=== PATIENT | female | born 1970 | race Caucasian/White ===

== ENCOUNTER → 2021-04-05 09:50 | Outpatient (BNVA) | payer MEDICARE, MEDICAID, SELFPAY | PROVIDERS: Referring Provider Family Medicine; Visit Provider Physician Assistant | DX: M54.50 Low back pain, unspecified (principal); M51.87 Other intervertebral disc disorders, lumbosacral region | CPT/HCPCS: 72110 ==

== ENCOUNTER → 2021-05-19 08:37 | Outpatient (BNVA) | payer MEDICARE, MEDICAID, SELFPAY | PROVIDERS: Visit Provider Physician Assistant | DX: M46.46 Discitis, unspecified, lumbar region (principal); M43.17 Spondylolisthesis, lumbosacral region | CPT/HCPCS: 72100 ==

== ENCOUNTER 2021-06-20 10:46 | Outpatient (CLI) | payer MEDICARE, MEDICAID, SELFPAY ==
--- NOTE | 2021-06-20 11:00 | MR_ITS ---
WS: [id number] MRI LUMBAR SPINE WITH CONTRAST TECHNIQUE: Sagittal T1, T2 and STIR imaging. Axial T1 and T2 imaging. Post gadolinium imaging was obt ained. CLINICAL INFORMATION: M43.17 - Spondylolisthesis, lumbosacral region COMPARISON: MRI March 11, 2021 FINDINGS: Again seen are changes of discitis at L5-S1 similar to the prior examination March 11, 2021. The p reviously described intradiscal abscess has decreased in size compared to previous. Increased erosive changes involving the inferior endplate L5 with progressed involvement of the S1 vertebral body toda y compatible with osteomyelitis. Diffuse enhancement involving the S1 vertebral body extending to the S1-S2 disc space and into the S2 vertebral body. This is new from previous. Previously described jyoti tral epidural abscess appears improved with diffuse residual epidural thickening and enhancement. Inc reased presacral soft tissue edema extending off the [id number] with paravertebral enhancement. Sa cral edema and enhancement extends into the LEFT sacral ala suspicious for osteomyelitis in this area . Bilateral renal cysts. Mild central canal stenosis C5-C6 and C6-C7 seen on the nuclear medicine technician imaging. L1-L2: Normal. L2-L3: Mild annular bulging with slight effacement of ventral thecal sac. Mild facet arthropathy. Spi nal canal and foramen are patent. L3-L4: No significant disc bulging. Mild facet arthropathy. Spinal canal and foramen are patent. L4-L5: Mild disc bulging with slight effacement of ventral thecal sac. Mild facet arthropathy. Spinal canal and foramen are patent. L5-S1: Chronic spondylolysis at this level with grade 1-2 anterolisthesis. Improved intradiscal absce ss at this level with progressed sacral edema and enhancement at S1 extending into the S2 vertebral b prema and LEFT sacral ala. Persistent erosive changes of the inferior endplate L5. Epidural abscess brittany ears improved with persistent circumferential epidural enhancement. Mild narrowing of the thecal sac distally. No high-grade central canal stenosis. Normal psoas bilaterally MR/MR lumbar spine wo/w con [id number] IMPRESSION: 1. Again seen are changes of discitis/osteomyelitis involving the L5-S1 disc s pace. 2. Improved intradiscal abscess L5-S1 with persistent phlegmon in the disc spa ce. Ventral epidural abscess has improved with persistent epidural enhancement. Mild narrowing of the thecal sac distally. 3. Edema and enhancement suspicious for osteomyelitis involving the S1 vertebr al body has progressed. This extends into the S2 vertebral body eccentric to th e LEFT and into the LEFT sacral ala new from previous. Diffuse yuliya-sacral sanjay a. 4. Persistent erosive changes of the L5 inferior endplate and progressed erosi ve changes involving the S1 superior endplate. 5. No other significant changes compared to previous.
== END 2021-06-20 10:47 | disposition home or self-care (01) ==
LOC: RAD 10:47
PROVIDERS: Visit Provider Physician Assistant
DX: M43.17 Spondylolisthesis, lumbosacral region (principal); M46.27 Osteomyelitis of vertebra, lumbosacral region; R60.0 Localized edema
CPT/HCPCS: 72158

== ENCOUNTER 2021-08-03 11:23 | Inpatient (IN) | payer MEDICARE, MEDICAID, SELFPAY ==
[2021-07-29 10:24] VITALS: BMI 29.8
[2021-07-29 10:59] LABS: Basophils % 0.3 %; Eosinophils # 0.2 10^3/uL (0.0-0.8); Eosinophils % 2.3 %; Hematocrit 36.9 % (37.0-47.0); Hemoglobin 11.7 g/dL (11.5-15.3); Lymphocytes # 1.6 10^3/uL (0.8-4.8); Lymphocytes % 18.5 %; Mean Corpuscular HGB Conc 31.7 g/dL (30.0-36.0); Mean Corpuscular Hemoglobin 28.2 pg (28.0-34.0); Mean Corpuscular Volume 88.9 fl (81-99); Mean Platelet Volume 12.6 fL (7.4-10.4); Monocytes # 0.9 10^3/uL (0.2-0.9); Monocytes % 9.9 %; Neutrophils # 6.03 10^3/uL (1.8-7.7); Nucleated Red Blood Cells % 0 %; Platelet Count 150 10^3/cmm (130-400); Red Blood Count 4.15 10^6/uL (4.1-5.3); Red Cell Distribution Width 17.7 % (12.1-15.1); White Blood Count 8.9 10^3/uL (4.0-10.0)
[2021-07-29 11:13] LABS: Anion Gap 21.1 (5-19); Blood Urea Nitrogen 15 mg/dL (6-20); Calcium 9.2 mg/dL (8.5-10.5); Carbon Dioxide 19 mmol/L (22-29); Chloride 100 mmol/L (98-107); Glomerular Filtration Rate 75.6 mL/min (90-130); Glucose 128 mg/dL (65-115); Osmolality Calculated 284 mOsm/kg (285-295); Potassium 4.1 mmol/L (3.5-5.1); Sodium 136 mmol/L (136-145)
--- NOTE | 2021-07-29 12:42 | ANES.PREANE2 ---
Pre-Anesthetic Assessment Height/Weight: Height 1.68 m Weight 83.915 kg Preop Diagnosis: lumbosacral radculopathy Operation Date: 08/03/21 07:00 Proposed Procedures p L3-Pelvis fusion [id number]/M43.16/m51.36(Not Applicable) - Parmjit Muñoz, DO Familial anesthetic complications: none Was Beta Michi taken within 24 hours: N/A Was Clonidine taken within 24 hours: N/A Social No alcohol and No tobacco Exam alert, oriented x 3, clear to auscultation bilaterally and regular rate & rhythm Airway Submandibular: within normal limits Cervical ROM: within normal limits Mallampati: Class I Dentition: false History/ROS No significant complaints Pulmonary None reported CV/HEM Hypertension METS < 4 due to pain None reported Hepatic None reported GI None reported Metabolic Diabetes Mellitus [facility] [place] None reported Neuropsych Neuropathy Anesthetic Plan ASA status: 2 Anesthesia: Anesthesia Evaluation and General Other: We discussed risk and benefits of general anesthesia including PONV, sore throat (sometimes severe), corneal abrasion, positioning and peripheral nerve injuries, life threatening allergic reaction, post operative ICU admission requiring prolonged intubation, stroke, heart attack, , post op blindness, and rare incidences of recall. Patient consents to proceed with general anesthesia. Risk of > 500 ml blood loss (7ml/kg in children): No Medications/Allergies Home Medications Medication Instructions Recorded Confirmed Last Taken Type duloxetine 30 mg capsule,delayed 30 mg PO DAILY 04/05/21 07/29/21 Unknown History release lovastatin 20 mg tablet 20 mg PO DAILY 04/05/21 07/29/21 Unknown History metformin 500 mg tablet 500 mg PO BID 04/05/21 07/29/21 Unknown History hydrochlorothiazide 25 mg tablet 25 mg PO DAILY 07/29/21 07/29/21 Unknown History hydrocodone 5 mg-acetaminophen 325 1 tab PO PRN PRN 07/29/21 07/29/21 Unknown History mg tablet losartan 50 mg tablet 50 mg PO DAILY 07/29/21 07/29/21 Unknown History Allergies Allergy/AdvReac Type Severity Reaction Status Date / Time azithromycin Allergy ADR-Itching Verified 07/29/21 10:20 naproxen [From EC-Naproxen] Allergy ADR-Abdominal Verified 07/29/21 10:20 Pain PFSH Anesthesia Social History Smoking and tobacco status: former smoker Data Anesthesia : 07/29/21 10:35 07/29/21 10:35 Short CBC 07/29/21 Range/Units 10:35 WBC 8.9 (4.0-10.0) 10^3/uL Hgb 11.7 (11.5-15.3) g/dL Hct 36.9 L (37.0-47.0) % MCV 88.9 (81-99) fl Plt Count 150 (130-400) 10^3/cmm Neut % (Auto) 68.0 % Neut # (Auto) 6.03 (1.8-7.7) 10^3/uL BMP 07/29/21 10:35 Sodium 136 Potassium 4.1 Chloride 100 Carbon Dioxide 19 L BUN 15 Creatinine 0.8 Glucose 128 H Calcium 9.2 Cardiac Studies: No Data to Display
[2021-08-03] VITALS (26 sets, daily range): BP systolic 108–143; BP diastolic 73–110; PULSE 72–102; RESP 16–20; TEMP 36.1–36.7; O2SAT 87–100; BMI 30.2
--- NOTE | 2021-08-03 | SCC_ITS ---
Procedure done: 1. L3- Pelvis posterior spine fusion 2. L3 to S1 instrumentation 3. Lumbopelvic instrumentation 4. Laminectomy with partial facetectomy L5/S1 5. Laminectomy with partial facetectomy L4/5 6. Debridement of L5/S1 disk space with cultures taken 7. Use of computer navigation/ stereotactic for the spine 8. use of allograft 15 seconds of fluoroscopic guidance, for a cumulative dose of 47.0 mGy, was provided to Dr. Muñoz by the radiology department. C-arm images of the lumbar spine were saved for the patient's permanent record. [facility]
--- NOTE | 2021-08-03 | XR_ITS ---
WS: [id number] Lumbar spine, C-arm fluoroscopy, 08/03/2021 Clinical Data: PLIF l4- pelvis Comparison: None. Findings: Dr. Muñoz performed a posterior lumbar fusion. XR/XR lumbar spine 1V [id number] Impression: Posterior lumbar fusion.
[2021-08-03 06:36] LABS: Glucose Point of Care 150 mg/dL (70-110)
[2021-08-03] MEDS: sodium chloride 0.9% 1,000 ML 30 ML IV (06:38)
--- NOTE | 2021-08-03 06:41 | P.ANESUD_ITS ---
Pre-Anesthetic Update Pre-Anesthetic Assessment: Date of Surgery/Procedure: 08/03/21 Preop Dina gnosis: Right Distal Radius Fracture Proposed Procedure: Operation Date: 08/03/21 07:00 Proposed Procedures p L3-Pelvis fusion [id number]/M43.16/m51.36(Not Applicable) - Parmjit Muñoz, DO Any changes to Pre-Anesthetic Assessment?: No Last Intake: Intake Last Liquid Date 08/02/21 Last Liquid Time 20:00 Last Solid Date 08/02/21 Last Solid Time 18:00 Vitals: Temperature 97.0 F L 08/03/21 06:13 Temperature Source Temporal Artery S can 08/03/21 06:13 Pulse Rate 102 H 08/03/21 06:13 Respiratory Rate 18 08/03/21 06:13 Blood Pressure 143/110 08/03/21 06:13 Blood Pressure Anushka n 121 08/03/21 06:13 Pulse Oximetry 98 08/03/21 06:13 Oxygen Delivery Me thod 08/03/21 06:16 Exam: Pre-Anes Outpt Exam: alert, oriented x 3, clear to auscultation bilaterally and regular rate & rhythm Cardiac Studies: No Data to Display
[2021-08-03 07:31] LABS: C Reactive Protein 50.6 mg/L (0.0-4.9)
[2021-08-03 07:32] LABS: Erythrocyte Sedimentation Rate 70 mm/hr (0-15)
[2021-08-03] MEDS: vancomycin 1,000 MG SDV 1000 MG XX (07:46)
[2021-08-03] MEDS: heparin, porcine 1,000 unit/mL INJ 10 mL 10000 UNIT IRRIGATION (07:47)
--- NOTE | 2021-08-03 10:09 | PM.OP ---
Operative Report Date of procedure: August 03, 2021 Pre-op diagnosis: Preop Diagnosis L5/S1 Discitis Post-op diagnosis: same Procedure done: 1. L3- Pelvis posterior spine fusion 2. L3 to S1 instrumentation 3. Lumbopelvic instrumentation 4. Laminectomy with partial facetectomy L5/S1 5. Laminectomy with partial facetectomy L4/5 6. Debridement of L5/S1 disk space with cultures taken 7. Use of computer navigation/ stereotactic for the spine 8. use of allograft Pathology: other (cultures sent of epidural space and disk space; aeobic and anaerobic cultures sent of disk space) Surgeon: Parmjit Muñoz Senior Vice President: George Olivarez Senior Vice President: The instructor adjunct surgical technician, George Olivarez, PAC was needed for his expertise under the microscope. He was important and necessary throughout the procedure to complete in a safe and timely manner. He assisted with patient positioning prepping and draping tissue retraction suctioning of the operative field protection of the dural sac and tissue closure Estimated blood loss (mL): 300 Procedure: 1. L3- Pelvis posterior spine fusion 2. L3 to S1 instrumentation 3. Lumbopelvic instrumentation 4. Laminectomy with partial facetectomy L5/S1 5. Laminectomy with partial facetectomy L4/5 6. Debridement of L5/S1 disk space with cultures taken 7. Use of computer navigation/ stereotactic for the spine 8. Bone marrow aspirate from Right iliac crest 9. use of allograft Patient is brought to the operative suite after undergoing anesthesia was placed in the prone position all areas impingement were well-padded. Patient was then prepped and draped in normal sterile fashion. Subperiosteal dissection was made down to the L3-L4 and L5 transverse processes. This was done from midline from the spinous process out to the transverse processes. This was continued down into the sacral ala bilaterally. Once exposure was complete attention was then brought to getting the bone marrow aspirate. Bone marrow aspirate was taken from the right iliac crest. This was done using the Rashmi cell bone marrow aspiration kit. The sharp was inserted into the right iliac crest followed by the blunt aspirates were done in order to this ensure that the needle was inside of the bone. The aspiration then began and in 1 mm increments bone marrow aspirate was taken in order to facilitate the most amount of stem cells. This stem cells were then mixed with the OsteoMed bone graft. Next attention was brought to placing the fiducials for the computer navigation. 2 pins were placed into the right iliac crest. These pins were then removed at the end of the case. The fiducial was then attached to these 2 pins and then the C-arm was brought in and spun around the patient. Information from the C-arm was then loaded into the computer and this was used for the computer navigation for placing the pedicle screws. Next attention was brought to placing the pedicle screws. This was done using the computer navigated gearshift. Attention was brought to the S1 pedicle on the left. The gearshift was inserted in the prone position. Measured pedicle feeler was then inserted and then the computer navigated screw was inserted using computer navigation. This process was repeated at S1 on the contralateral side. Then at L5 bilaterally, and L4 bilaterally, and L3 bilaterally. Patient was brought to placing the bilateral iliac screws. This was done using the gearshift probe as well these are sacral ala iliac technique was used. These were eight 5 x 70 mm screws. Once the screws were placed on the inner tables of the iliac crests through the sacrum C-arm was then brought in to ensure that all the screws were in the proper position. Attention was brought to the laminectomy of L5 along with partial facetectomies of L5-S1. This was done using high-speed bur Kerrison rongeurs and curettes. The ligamentum flavum was scarred down to the dura was peeled off using a curette and [place]. The drill was used to thin the bone and then the Kerrison was used to take the bone off the dura along with the ligament. All this was taken for cultures. This was done bilaterally. And then once the disc was identified small hole was made in the disc and cultures were taken of the disc as well aerobic and anaerobic cultures. Both tissue and cultures were taken. And the disc base was debrided with a curette. Next attention was brought to the L4 lamina this was taken down as well along with the medial and lateral aspect of the facet joints. Again using the Kerrison rongeurs to drill and curettes. The L5 nerves were traced around the L5 pedicles the S1 nerves were traced around the S1 pedicles bilaterally to ensure that the nerves are completely decompressed. Wounds were then irrigated. Next attention was brought to decorticating the transverse processes of L3-L4-L5 and the sacral ala bilaterally. The ostial amp bone graft was then packed into the lateral gutters. A deep drain was placed vancomycin powder was placed in the wound was closed in a layered fashion using 0 Vicryl 2-0 Vicryl and Monocryl suture. Sterile dressings were applied and patient was transferred to the PACU in stable condition.
[2021-08-03] MEDS: fentaNYL 50 mcg/mL INJ 2mL IVP ×2 (10:46→11:18)
--- NOTE | 2021-08-03 11:02 | SUR.PHASEI ---
1022 Bilat SCDs on pump and working
[2021-08-03] MEDS: lactated ringers 1,000 ML 90 ML IV (13:16)
[2021-08-03] MEDS: ketorolac 30 mg/mL INJ IVP ×2 (13:16→20:14)
--- NOTE | 2021-08-03 13:40 | ANE.PACU2 ---
Inpatient post-anesthesia follow up: Airway intact: Yes Vital signs: Temperature 97.2 F Pulse Rate 78 Respiratory Rate 18 Blood Pressure 138/87 Pulse Oximetry 97 Oxygen Delivery Me thod Nasal Cannula Oxygen Flow Rate 1 Fraction of Inspir ed Oxygen Hydration adequate: Yes Nausea and vomiting: No Pain level: 3 Mental status: Baseline
[2021-08-03] MEDS: docusate sodium 100 mg Capsule PO (17:49)
[2021-08-03] MEDS: metformin 500 mg Tablet PO (17:49)
--- NOTE | 2021-08-03 20:23 | PC.NURSE ---
Patient resting in bed in darkened room. Patient reports pain 9/10, patient given Toradol for pain will reassess.
[2021-08-03] MEDS: HYDROcodone-acetaminophen 5-325 mg Tablet PO (21:35)
[2021-08-04] VITALS (7 sets, daily range): BP systolic 121–144; BP diastolic 63–91; PULSE 83–94; RESP 16–18; TEMP 36.5–36.8; O2SAT 94–100
[2021-08-04] MEDS: lactated ringers 1,000 ML 90 ML IV (03:48)
[2021-08-04] MEDS: enoxaparin 40 mg/0.4 mL Syringe SUBCUT (05:18)
[2021-08-04 05:52] LABS: Glucose Point of Care 133 mg/dL (70-110)
--- NOTE | 2021-08-04 07:52 | PM.PN ---
Subjective Subjective: POD 1 Patient resting comfortably. Reports improvement of her back and leg pain. Denies any chest pains, shortness of breath, headaches. Vitals/I&O/Wt Last Vital Signs Temp 97.9 F 08/04/21 07:46 Pulse 93 08/04/21 07:46 Resp 16 08/04/21 07:46 BP 144/63 08/04/21 07:46 Pulse Ox 100 08/04/21 07:46 08/03/21 08/04/21 08/04/21 22:59 06:59 14:59 Intake Total 1380 / 1730 1420 / 3150 Output Total 300 / 750 300 / 1050 Balance 1080 / 980 1120 / 2100 Weight last 48 hrs Weight 191 lb 8 oz Weight 187 lb 9.6 oz Physical Exam Narrative: Patient presents alert and oriented x3 with a good general appearance normal mood and affect. Normal coordination normal stability. Mild tenderness around the incisional site with the incision appear to be clean and dry. No signs of erythema or drainage. No signs of infection. Patient denies any fevers or chills. 5/5 motor strength both lower extremities with negative straight leg raise bilaterally. Calves are supple no medial thigh tenderness. Pulses are 2+ at the dorsalis pedis and posterior tibial region. Good capillary refill throughout normal sensation light touch both lower extremities. Hemovac drain with 50 mL of output. CRP before the procedure was 50.6 with a sed rate of 70 based on her discitis history use this as a baseline. Urinary Catheter Management: Calzaad: Cath Placed During This Visit: yes, but has since been removed by the nurse Reason for Continuing Indwelling Catheter: Decision to DC Catheter Urinary Catheter Date of Insertion: 08/03/21 Urinary Catheter Time of Insertion: 07:15 Date Urinary Catheter Removed: 08/04/21 Time Urinary Catheter Discontinued: 06:37 Data : 07/29/21 10:35 07/29/21 10:35 Micro: Microbiology 08/03/21 09:00 Gram Stain - Final Back 08/03/21 09:00 Gram Stain - Final Back 08/03/21 09:00 Gram Stain - Final Back A&P Assessment and plan (1) Status post lumbar spinal fusion: Physical therapy to evaluate and mobilize. Discussed at length with the patient given her discitis history certainly want a watch her very closely. Encourage her to continue walking program. We will discontinue the Hemovac drain and Calzada catheter. Will discharge home later today see her back in 1 week's time for wound check and she will call if anything changes. Status: Acute Attestations Medical Necessity Statement*: Home later today Coding Level of Care Code Acute Inpatient Care Manager Rn for Deandre Fwkevin Diagnoses Status post lumbar spinal fusion Z98.1
[2021-08-04] MEDS: losartan 50 mg Tablet PO (08:30)
[2021-08-04] MEDS: HYDROcodone-acetaminophen 5-325 mg Tablet PO ×2 (08:31→12:36)
[2021-08-04] MEDS: metformin 500 mg Tablet PO (08:33)
[2021-08-04] MEDS: atorvastatin 40 mg Tablet 20 MG PO (08:35)
[2021-08-04] MEDS: duloxetine 30 mg Capsule PO (08:35)
[2021-08-04] MEDS: hydroCHLOROthiazide 25 mg Tablet PO (08:35)
[2021-08-04] MEDS: docusate sodium 100 mg Capsule PO (08:35)
--- NOTE | 2021-08-04 10:30 | PC.CHAP ---
Pastoral Care Encounter/Spiritual Assessment Type of Contact [] Declined process safety management engineer visit [] Patient/Family/Request visit [] Outpatient visit [] Follow-up visit [] Physician referral [] Code/Alert [x] Routine visit [] Staff referral [] Actively dying [] Patient sleeping [] Family support [] [] Out of room [] Palliative care [] [x] Receiving care in room [] Pre-surgical visit [] Trauma [] Long length of stay [] ICU visit [] Other: Relational/Emotional Strength [x] Patient feels connected with others/family/visitors/staff [] Distress [] Loneliness/isolation [] Abandonment Spirituality of Patient [x] Person of [place] [] Attends Hinduism of their [place] [x] Believes in Prayer [] Reads Bible or Baptist materials [] There are Spiritual issues to be addressed [employer] Interventions [x] Prayer [x] Active listening [x] Non-anxious presence [x] Spiritual/emotional support [] Crisis/trauma care [x] Spiritual counseling [] Bereavement support [] Provided bereavement packet [] Provided Bible/devotional materials [] Provided toy/stuffed animal, coloring book to patient or family member [] Provided Communion [] Anointing/[place] [] Salvation [x] Completed spiritual assessment [] Other: Impact on Illness or Injury [] Angry [] Fearful [x] Anxious [] Often cries [] Exhaustion [] Unable to work [] Unable to attend jew [] Unable to walk/stand [] Unable to read [] Unable to drive [] Unable to eat/drink [] Unable to sleep [] Unable to be with family [] Patient intubated [] Other: Summary had back surgeryin some pain, recovery good has a good attitude + 2 and daugter going home soon Time spent with patient 10 mins
[2021-08-04 11:20] LABS: Glucose Point of Care 218 mg/dL (70-110)
--- NOTE | 2021-08-05 12:25 | PM.DCS ---
Discharge Providers Date of Admission: 08/03/21 11:23 Date of Discharge: August 04, 2021 Attending Provider at Admission: Parmjit Muñoz DO Attending Provider at Discharge: Parmjit Muñoz DO Primary Care Provider: Vlad Kirk Diagnoses at Discharge Discharge Diagnosis (1) Status post lumbar spinal fusion: Status: Acute Hospital Course Hospital Course uneventful Physical Exam Urinary Catheter Management: Calzada: Cath Placed During This Visit: yes, but has since been removed by the nurse Reason for Continuing Indwelling Catheter: Decision to DC Catheter Urinary Catheter Date of Insertion: 08/03/21 Urinary Catheter Time of Insertion: 07:15 Date Urinary Catheter Removed: 08/04/21 Time Urinary Catheter Discontinued: 06:37 Discharge Data Studies Completed and Pending Completed Studies During Hospitalization Category Date Time Status XR lumbar spine 1V [id number] Routine Exams 08/03/21 Completed Pending at discharge Category Date Time Status Anaerobic Culture Routine Lab 08/03/21 09:00 Results Tissue Culture and Gram Stain Routine Lab 08/03/21 09:00 Results Tissue Culture and Gram Stain Routine Lab 08/03/21 09:00 Results Tissue Culture and Gram Stain Routine Lab 08/03/21 09:00 Results Radiology Impressions Lumbar Spine X-Ray 08/03/21 00:00 Impression: Posterior lumbar fusion. Laboratory Results WBC 8.9 10^3/uL (4.0-10.0) 07/29/21 10:35 RBC 4.15 10^6/uL (4.1-5.3) 07/29/21 10:35 Hgb 11.7 g/dL (11.5-15.3) 07/29/21 10:35 Hct 36.9 % (37.0-47.0) L 07/29/21 10:35 MCV 88.9 fl (81-99) 07/29/21 10:35 MCH 28.2 pg (28.0-34.0) 07/29/21 10:35 MCHC 31.7 g/dL (30.0-36.0) 07/29/21 10:35 RDW 17.7 % (12.1-15.1) H 07/29/21 10:35 Plt Count 150 10^3/cmm (130-400) 07/29/21 10:35 MPV 12.6 fL (7.4-10.4) H 07/29/21 10:35 Neut % (Auto) 68.0 % 07/29/21 10:35 Lymph % (Auto) 18.5 % 07/29/21 10:35 Yancey % (Auto) 9.9 % 07/29/21 10:35 Eos % (Auto) 2.3 % 07/29/21 10:35 Baso % (Auto) 0.3 % 07/29/21 10:35 Neut # (Auto) 6.03 10^3/uL (1.8-7.7) 07/29/21 10:35 Lymph # (Auto) 1.6 10^3/uL (0.8-4.8) 07/29/21 10:35 Yancey # (Auto) 0.9 10^3/uL (0.2-0.9) 07/29/21 10:35 Eos # (Auto) 0.2 10^3/uL (0.0-0.8) 07/29/21 10:35 Baso # (Auto) 0.0 10^3/uL (0.0-0.1) 07/29/21 10:35 Nucleated RBC % (auto) 0 % 07/29/21 10:35 Nucleated RBCs # 0.0 /100WBC 07/29/21 10:35 ESR 70 mm/hr (0-15) H 08/03/21 06:34 Sodium 136 mmol/L (136-145) 07/29/21 10:35 Potassium 4.1 mmol/L (3.5-5.1) 07/29/21 10:35 Chloride 100 mmol/L (98-107) 07/29/21 10:35 Carbon Dioxide 19 mmol/L (22-29) L 07/29/21 10:35 Anion Gap 21.1 (5-19) H 07/29/21 10:35 BUN 15 mg/dL (6-20) 07/29/21 10:35 Creatinine 0.8 mg/dL (0.5-0.9) 07/29/21 10:35 GFR Calculation 75.6 mL/min (90-130) L 07/29/21 10:35 Glucose 128 mg/dL (65-115) H 07/29/21 10:35 POC Glucose 218 mg/dL (70-110) H 08/04/21 11:07 Calculated Osmolality 284 mOsm/kg (285-295) L 07/29/21 10:35 Calcium 9.2 mg/dL (8.5-10.5) 07/29/21 10:35 C-Reactive Protein 50.6 mg/L (0.0-4.9) H 08/03/21 06:34 Vitals Last Vital Signs Temp 97.7 F 08/04/21 11:47 Pulse 91 08/04/21 11:47 Resp 18 08/04/21 11:47 BP 121/75 08/04/21 11:47 Pulse Ox 94 08/04/21 11:08 Discharge Plan Discharge Patient Disposition: Home Condition: Stable Prescriptions: New hydrocodone-acetaminophen 5-325 mg tablet 1 - 2 tab PO Q4H Qty: 40 0RF cephalexin 500 mg capsule 500 mg PO QID 10 Days Qty: 40 0RF Continued duloxetine 30 mg capsule,delayed release(DR/EC) 30 mg PO DAILY 0RF lovastatin 20 mg tablet 20 mg PO DAILY 0RF metformin 500 mg tablet 500 mg PO BID 0RF (DME) Bone Growth Stimulator E0748 See Rx Instructions .Route .MEDSUPPLY Qty: 1 0RF Rx Instructions: As directed losartan 50 mg tablet 50 mg PO DAILY 0RF hydrocodone-acetaminophen 5-325 mg tablet 1 tab PO PRN PRN (Reason: Pain) 0RF hydrochlorothiazide 25 mg tablet 25 mg PO DAILY 0RF Discharge Orders: Discharge Order (Routine); Ordered 08/04/21 Ordered By: George Olivarez Referrals: Parmjit Muñoz DO [Physician] - 08/11/21 1:00 pm Discharge Diet: Advance as tolerated Discharge Activity: Increase activity as tolerated Patient Instructions: Cephalexin (By mouth), Hydrocodone/Acetaminophen (By mouth), Lumbar Spinal Fusion (GEN), Opioid Safety Activity Restrictions/Additional Instructions: Thank you for choosing [facility] for your care! The following is a list of instructions, from your provider, to follow upon your discharge to ensure you have the optimal recovery from your recent injury or surgery. Follow-up care is a griffith part of your treatment and safety. Be sure to make and go to all appointments and call your doctor if you are having problems. If you do not already have a follow-up appointment made, call Dr. Muñoz's] office in the next 1-3 days to make follow up appointment for 1 week at [phone]. It is also a good idea to know your test results and keep a list of the medicines you take. Medications will be prescribed for you at your provider's discretion. These medications are to be used as instructed; if they are taken more often that prescribed they will not be refilled early and in most cases will not be refilled at all. > When a refill is needed, you should contact amarilis velez 2-3 business days before your prescription runs out. Medications will NOT be refilled by television parts tester providers after hours! > Many pain medications contain Tylenol (Acetaminophen). Do not consume more than 4,000 mg of Tylenol per day in total with any combination of medications. > Pain medications can cause constipation. Please use an over the counter stool softener as directed, while taking pain medications. Consult your local pharmacist with questions or recommendations on stool softeners. If constipation persists, contact our office or your primary care provider. > While under our care, you are not to receive pain medications or other controlled substances from any other provider unless our office is notified and approves. Any attempts to do so will result in refusal to prescribe any further pain medications and possible dismissal from our practice. ? Walking is essential for the healing process after surgery. We would like you to slowly advance your walking. This should be done on relatively flat clear ground (inside or out) or can be done on a treadmill. Remember this goal does not have to happen all at once, slowly increase your distance and duration. This can be broken into more more than one walk per day as tolerated. Patients who walk as directed after surgery rarely require Physical Therapy. In the unlikely event this issue arises your provider will direct hospital staff to make the appropriate arrangements. ? No lifting over 5 pounds {a gallon of milk) or bending/twisting until further notice. Each of these activities places an unnecessary amount of stress onto the body and can impede the delicate healing process. > Instead of bending at the waist, keep your back straight and bend at the knees. > Instead of twisting your torso, keep your back straight and turn your entire body with your feet. ? You may sleep in any position which makes you comfortable. Many patients find comfort sleeping in a reclining chair. It is not abnormal to have difficulty sleeping for the first several weeks following your surgery. We recommend trying Benadry! or Tylenol PM as directed to help with your sleeping difficulties. Both medications are over the counter and available without prescription. ? NO SMOKING!!! Smoking dramatically increases the probability of developing postoperative wound infections. ? Common complaints after lumbar and/or thoracic spine surgery include, but are not limited to: numbness and/or tingling in the legs, pain around the incision and surrounding tissues, muscle spasms, or stiffness of the middle to low back. Contact our office if these symptoms persist or if an acute change occurs. ? No driving for the first 3-5days, and not while taking narcotics until seen at your follow-up appointment and cleared. There are no restrictions for riding on short trips, however if you take a longer trip, arrangements should be made to make regular stops to get out of the vehicle and stretch . ? Swelling is an unfortunate event that will take place with any surgery and is the primary source of your postoperative discomfort. While walking and regular approved activities helps control inflammation, there are additional steps you can take to minimize swelling. > Place ice over the surgical site and surrounding tissue for twenty minutes, followed by applying a low/medium heat (heating pad) for an additional twenty minutes every 1-2 hours as needed for painrelief. > You may use of over the counter anti-inflammatory medications (Ibuprofen, Motrin, Aleve, Advil, etc) as directed on the package label. These types of medicines will significantly reduce the amount of discomfort you experience after surgery from swelling. It should be noted that if you have and allergy to any of these medications, or a history of ulcers or kidney disease you should consult you primary care provider prior to starting these medications. Discharge Attestations Time Spent in Discharge Care*: less than 30 min Quality Metrics Clinical Quality Measures [ No reported AMI, CVA or VTE this stay] Coding Level of Care Code Acute Chg FW DC note Diagnoses Status post lumbar spinal fusion Z98.1
--- NOTE | 2021-08-05 12:26 | P.HP_ITS ---
Providers/Chief Complaint Admitting Physician: Parmjit Muñoz DO Primary Care Provider: Vlad Kirk History of Present Illness Luh Mcneal is a 50 year old female back pain as well as her MRI results. Patient states her pain is a 10/10 today in clinic.? She continues to ambulate with a walker.? She is accompanied by family member today.? She denies any new injuries other than continued back pain she reports some improvement of her leg numbness.? She still reports weakness in both lower extremities.? She denies any fever chills.? She is wanting to discuss the MRI scan as well as surgical options. Review of Systems General: Reports: 10 or more systems reviewed and unremarkable except in HPI and below Const: Denies: fever(s), chills or fatigue Eyes: Denies: change in vision Card: Denies: chest pain or dyspnea on exertion Resp: Denies: dyspnea, productive cough or wheezing GI: Denies: abdominal pain, nausea or vomiting Musc: Reports: back pain, extremity pain and limited range of motion; Denies: neck pain, extremity swelling, joint pain or joint swelling Neuro: Reports: numbness in extremities; Denies: headache(s) or difficulty walking Medications/Allergies Home Medications Medication Instructions Recorded Confirmed Last Taken Type duloxetine 30 mg capsule,delayed 30 mg PO DAILY 04/05/21 08/03/21 08/02/21 History release lovastatin 20 mg tablet 20 mg PO DAILY 04/05/21 08/03/21 08/03/21 History metformin 500 mg tablet 500 mg PO BID 04/05/21 08/03/21 08/02/21 History hydrochlorothiazide 25 mg tablet 25 mg PO DAILY 07/29/21 08/03/21 08/02/21 History hydrocodone 5 mg-acetaminophen 325 1 tab PO PRN PRN 07/29/21 08/03/21 07/27/21 History mg tablet losartan 50 mg tablet 50 mg PO DAILY 07/29/21 08/03/21 08/02/21 History Bone Growth Stimulator E0748 #1 ea 08/01/21 Unknown Rx cephalexin 500 mg capsule 500 mg PO QID 10 Days #40 cap 08/04/21 Unknown Rx hydrocodone 5 mg-acetaminophen 325 1 - 2 tab PO Q4H #40 tab 08/04/21 Unknown Rx mg tablet Allergies Allergy/AdvReac Type Severity Reaction Status Date / Time azithromycin Allergy ADR-Itching Verified 08/03/21 06:11 naproxen [From EC-Naproxen] Allergy ADR-Abdominal Verified 08/03/21 06:11 Pain PFSH Acute PFSH: Social History Smoking and tobacco status: former smoker Vitals/I&O/Wt Last Vital Signs Temp 97.7 F 08/04/21 11:47 Pulse 91 08/04/21 11:47 Resp 18 08/04/21 11:47 BP 121/75 08/04/21 11:47 Pulse Ox 94 08/04/21 11:08 Weight last 48 hrs Weight 191 lb 8 oz Weight 187 lb 9.6 oz Physical Exam Narrative: ONSTITUTIONAL: The patient is a normal appearing [] in no apparent distress. GENERAL: Patient in no acute distress. CARDIAC: Regular rate and rhythm. CHEST: Normal inspiratory effort, normal respiratory rate. ABDOMEN: Soft and nontender. SKIN: Clear, warm and intact. NEURO?PSYCH: The patient is alert and oriented to person, place and time. Sensorv /SILT Motor StrengthShoulder abduction C5 5/5Wrist extension C6 5/5Elbow extension C7 5/5Hand Shadowgraph Scale Operator C8 5/5Finger abduction T15/5 Radial/ Ulnar/ Median n intact LowerSensory (SILT)Motor StrengthHin flexion L2/3Ant/inner thigh 5/5Hip adduction L2/3 5/5Knee extension L4 Lat thigh, 5/5Toe dorsiflexion L5 5/5Ankle dorsiflexion L5/ A67Mgaifov flexion S1 5/5 DTRBleeps 2+Triceps 2+Brachioradialis 2+Patellar 2+Achilles 2+ MUSCULOSKELETAL: [] UPPEREXTREMITIES: The patient had full active ROM in fingers, wrist, elbow, and shoulder. The patient demonstrated ability to fully flex/extend/abduct/addu ct fingers, make ok sign, cross 2nd/3rd digits, extend 1st digit fully.. Radial pulse 2+, CR<2 seconds. LOWER EXTREMITIES: Pt has full, active ROM of toes, ankle, knee, and hip. Dorsalis pedis/posterior tibialis pulses 2+, CR<2 seconds. SPINE: Skin warm, dry, intact. Urinary Catheter Management: Calzada: Cath Placed During This Visit: yes, but has since been removed by the nurse Reason for Continuing Indwelling Catheter: Decision to DC Catheter Urinary Catheter Date of Insertion: 08/03/21 Urinary Catheter Time of Insertion: 07:15 Date Urinary Catheter Removed: 08/04/21 Time Urinary Catheter Discontinued: 06:37 Data : 07/29/21 10:35 07/29/21 10:35 Micro: Microbiology 08/03/21 09:00 Gram Stain - Final Back Anaerobic Culture - Preliminary Tissue Culture - Preliminary Staphylococcus aureus 08/03/21 09:00 Gram Stain - Final Back Tissue Culture - Preliminary Staphylococcus aureus 08/03/21 09:00 Gram Stain - Final Back Tissue Culture - Preliminary A&P Assessment and plan (1) Lumbar discitis: stabalize discitis Status: Acute Attestations Medical Necessity Statement*: failed abx Coding Level of Care Code Acute Postbed Stitcher for Deandre Melendez Diagnoses Lumbar discitis M46.46
== END 2021-08-04 13:45 | disposition home or self-care (01) | DRG 460 ==
LOC: MEDSURG 11:25
PROVIDERS: Anesthesiology; Physician Assistant; Admitting Provider Orthopaedic Surgery; PCP Family Medicine; Visit Provider Orthopaedic Surgery
PROC: 0SG1071 Fusion of 2 or more Lumbar Vertebral Joints with Autologous Tissue Substitute, Posterior Approach, Posterior Column, Open Approach (ICD-10-PCS; principal; 2021-08-03 07:00)
DX: M43.17 Spondylolisthesis, lumbosacral region (principal); Z87.891 Personal history of nicotine dependence; M51.36 Other intervertebral disc degeneration, lumbar region; M54.17 Radiculopathy, lumbosacral region
CPT/HCPCS: 36415; 36416; 51702; 72020; 76000; 80048; 82962; 85025; 85651; 86140; 87070; 87075; 87077; 87176; 87186; 87205; 96372; 97116; 97161; C1713; J0690; J1100; J1170; J1644; J1650; J1885; J2370; J2405; J2704; J3010; J3370; J3490; J7030; P9041

== ENCOUNTER → 2021-08-11 12:13 | Outpatient (BNVA) | payer MEDICARE, MEDICAID, SELFPAY | PROVIDERS: PCP Family Medicine; Visit Provider Orthopaedic Surgery | DX: Z22.322 Carrier or suspected carrier of Methicillin resistant Staphylococcus aureus (principal); Z47.89 Encounter for other orthopedic aftercare; Z98.890 Other specified postprocedural states; Z98.1 Arthrodesis status | CPT/HCPCS: 99024 ==

== ENCOUNTER → 2021-08-25 09:41 | Day surgery (SDC) | payer MEDICARE, MEDICAID, SELFPAY ==
--- NOTE | 2021-08-23 11:16 | PC.NURSE ---
PICC line placement to be rescheduled. Dr. Muñoz's nurse, Saira, working at setting up home infusion and unable to secure agency at this time.
--- NOTE | 2021-08-25 09:45 | XR_ITS ---
WS: [id number] Portable AP semiupright chest, 08/25/2021 Clinical Data: post PICC placement Comparison: None. Findings: A right PICC line has been inserted and it ends in the superior vena cava. No pneumothorax is seen. XR/XR chest 1V portable [id number] Impression: Insertion of right PICC line.
[2021-08-25 09:55] VITALS: BP 134/101; PULSE 107; RESP 18; TEMP 36.6; O2SAT 98
[2021-08-25] MEDS: linezolid premix 600 MG/300 ML PREMIX 300 MG IV (10:47)
--- NOTE | 2021-08-25 11:45 | PC.NURSE ---
PICC line to Right upper arm placed per HERNESTO Zuniga. Chest x-ray confirmed placement in SVC. Zyvox 600 mg IVPB to infuse as orderd. [facility] to take over infusions. Pt educated on PICC line. Verbalized understanding. Tolerated dose of Zyvox without difficulty. No reaction noted.
== END ==
PROVIDERS: PCP Family Medicine; Visit Provider Orthopaedic Surgery
DX: M54.17 Radiculopathy, lumbosacral region (principal); Z22.322 Carrier or suspected carrier of Methicillin resistant Staphylococcus aureus; Z98.1 Arthrodesis status; Z47.89 Encounter for other orthopedic aftercare; Z98.890 Other specified postprocedural states
CPT/HCPCS: 36569; 71045; 96365; 99024; J2020

== ENCOUNTER → 2021-09-29 09:53 | Outpatient (BNVA) | payer MEDICARE, MEDICAID, SELFPAY | PROVIDERS: PCP Family Medicine; Visit Provider Orthopaedic Surgery | DX: Z47.89 Encounter for other orthopedic aftercare (principal); Z98.890 Other specified postprocedural states; Z98.1 Arthrodesis status; M43.16 Spondylolisthesis, lumbar region | CPT/HCPCS: 72100; 99024 ==

== ENCOUNTER → 2021-10-25 12:56 | Outpatient (BNVA) | payer MEDICARE, MEDICAID, SELFPAY | PROVIDERS: PCP Family Medicine; Visit Provider Orthopaedic Surgery | DX: Z47.89 Encounter for other orthopedic aftercare (principal); Z98.890 Other specified postprocedural states; Z98.1 Arthrodesis status; M47.12 Other spondylosis with myelopathy, cervical region | CPT/HCPCS: 72050; 72100; 99024 ==

== ENCOUNTER 2021-12-16 13:11 | Outpatient (CLI) | payer MEDICARE, MEDICAID, SELFPAY ==
--- NOTE | 2021-12-16 13:45 | MR_ITS ---
WS: [id number] MRI CERVICAL SPINE NONCONTRAST HISTORY: pain COMPARISON: 03/11/2021 Technique: Multiplanar, multisequence noncontrast imaging of the cervical spine. Straightening of the normal cervical lordosis. Moderate size osteophyte encroachment upon the ventral cervical cord at C5-6 and C6-7. Signal within the cord appears normal. No fractures or marrow edema. Signal within the cervical cord is normal. Visualized posterior fossa is unremarkable. Craniocervical junction, C1 and C2 relationship, odontoid process and soft tissues are normal. C2-C3: Normal. C3-C4: Normal. C4-C5: Normal. C5-C6: Moderate osteophytic ridging with effacement of ventral CSF and contact and deformity of the v entral cervical cord. Moderate to severe central and bilateral foraminal stenosis. Disc osteophytes c omplexes extend into the foramina bilaterally causing moderate to severe stenosis. C6-C7: Diffuse osteophytic ridging and annular disc bulge. Moderate size central disc protrusion effa cing CSF and deforming the cord. Moderate to severe central and bilateral foraminal stenosis. Disc os teophytes protrude into the foramina. C7-T1: Mild RIGHT foraminal narrowing. Paraspinal soft tissue are normal. MR/MR cervical spin wo con* [id number] IMPRESSION: 1. Moderate to severe central and bilateral foraminal stenosis at C5-6 and C6- 7. Due to combination of disc and osteophyte disease with deformity and displac ement of the cervical cord. 2. No signal abnormality within the cord.
== END 2021-12-16 13:12 | disposition home or self-care (01) ==
LOC: RAD 13:12
PROVIDERS: PCP Family Medicine; Visit Provider Orthopaedic Surgery
DX: M54.2 Cervicalgia (principal); Z98.1 Arthrodesis status; M48.02 Spinal stenosis, cervical region
CPT/HCPCS: 72141

== ENCOUNTER → 2021-12-20 09:43 | Outpatient (BNVA) | payer MEDICARE, MEDICAID, SELFPAY | PROVIDERS: PCP Family Medicine; Visit Provider Anesthesiology Pain Medicine | DX: M50.00 Cervical disc disorder with myelopathy, unspecified cervical region (principal); M47.812 Spondylosis without myelopathy or radiculopathy, cervical region; M79.601 Pain in right arm; M79.602 Pain in left arm; F17.200 Nicotine dependence, unspecified, uncomplicated; Z98.1 Arthrodesis status | CPT/HCPCS: 99204 ==